=== PATIENT | female | born 1945 | race Caucasian/White ===

== ENCOUNTER 2024-07-29 19:20 | Inpatient (IN) | payer MEDICARE, BC ==
[~2024-07-29] VITALS: Ht 167.6 cm; Wt 87.5 kg
[2024-07-29] MEDS: IV NS 0.9% 500 ML BAG IV ONE (19:30)
[2024-07-29] MEDS: ONDANSETRON HCL/PF 4 MG/2 ML VIAL IVP ONE (19:30)
[2024-07-29] MEDS: MORPHINE SULFATE INJ 2 MG/ML DISP.SYRIN IV ONE ×2 (19:30→20:34)
[2024-07-29] MEDS ORDERED: MORPHINE SULFATE INJ 4 MG/ML DISP.SYRIN ONE ×2 (19:39→20:31)
[2024-07-29] MEDS ORDERED: ONDANSETRON HCL/PF 4 MG/2 ML VIAL ONE (19:39)
[2024-07-29 19:44] LABS: BASOPHILS # (AUTO) 0.1 K/uL (0.0-0.2); BASOPHILS % (AUTO) 1.3 % (0.0-2.0); EOSINOPHILS # (AUTO) 0.2 K/uL (0.0-0.7); EOSINOPHILS % (AUTO) 2.6 % (0.0-6.0); HEMATOCRIT 40 % (33-45); HEMOGLOBIN 13.4 g/dL (11.5-14.8); LYMPHOCYTES # (AUTO) 2.2 K/uL (0.8-4.8); LYMPHOCYTES % (AUTO) 33.6 % (20.0-44.0); MEAN CORPUSCULAR HEMOGLOBIN 28 PG (26.0-33.0); MEAN CORPUSCULAR HGB CONC 34 g/dl (31.0-36.0); MEAN CORPUSCULAR VOLUME 85 fL (82-100); MONOCYTES # (AUTO) 0.8 K/uL (0.1-1.30); MONOCYTES % (AUTO) 12.7 % (2.0-12.0); NEUTROPHILS # (AUTO) 3.2 K/uL (1.8-8.9); NEUTROPHILS % (AUTO) 49.8 % (43.0-81.0); PLATELET COUNT (AUTO) 274 K/uL (150-450); RED BLOOD CELL COUNT(AUTO) 4.74 MIL/uL (4.0-5.2); RED CELL DISTRIBUTION WIDTH 14.4 % (11.5-15.0); WHITE BLOOD COUNT (AUTO) 6.5 K/uL (4.3-11.0)
[2024-07-29 19:53] LABS: CALCIUM, SERUM 9.4 mg/dL (8.5-10.1); CREATININE 0.8 mg/dL (0.6-1.3); POTASSIUM 3.3 mmol/L (3.5-5.1)
[2024-07-29] MEDS ORDERED: Z GUARD REMEDY 4 OZ OINT TP PRN (23:00)
[2024-07-29] MEDS ORDERED: ONDANSETRON HCL/PF 4 MG/2 ML VIAL IVP PRN (23:00)
[2024-07-29] MEDS ORDERED: ZOLPIDEM TARTRATE 5 MG TABLET PO PRN (23:00)
[2024-07-29] MEDS: POTASSIUM CHLORIDE 20 MEQ TAB.PRT.SR PO ONE (23:45)
[2024-07-29] MEDS: IV D5/0.45 NACL 1,000 ML IV PRN (23:48)
[2024-07-30] MEDS: HYDROCODONE/APAP 5/325MG TABLET PO PRN (00:23)
[2024-07-30 07:28] LABS: BASOPHILS # (AUTO) 0.1 K/uL (0.0-0.2); EOSINOPHILS # (AUTO) 0.1 K/uL (0.0-0.7); EOSINOPHILS % (AUTO) 1.3 % (0.0-6.0); HEMATOCRIT 37 % (33-45); HEMOGLOBIN 12.2 g/dL (11.5-14.8); LYMPHOCYTES # (AUTO) 0.9 K/uL (0.8-4.8); LYMPHOCYTES % (AUTO) 13.7 % (20.0-44.0); MEAN CORPUSCULAR HEMOGLOBIN 29 PG (26.0-33.0); MEAN CORPUSCULAR HGB CONC 33 g/dl (31.0-36.0); MEAN CORPUSCULAR VOLUME 86 fL (82-100); MONOCYTES # (AUTO) 0.9 K/uL (0.1-1.30); MONOCYTES % (AUTO) 13.5 % (2.0-12.0); NEUTROPHILS # (AUTO) 4.6 K/uL (1.8-8.9); NEUTROPHILS % (AUTO) 70.5 % (43.0-81.0); PLATELET COUNT (AUTO) 239 K/uL (150-450); RED BLOOD CELL COUNT(AUTO) 4.27 MIL/uL (4.0-5.2); RED CELL DISTRIBUTION WIDTH 14.6 % (11.5-15.0); WHITE BLOOD COUNT (AUTO) 6.4 K/uL (4.3-11.0)
[2024-07-30 07:58] LABS: CALCIUM, SERUM 8.7 mg/dL (8.5-10.1); CREATININE 0.7 mg/dL (0.6-1.3); MAGNESIUM 2.3 mg/dL (1.8-2.4); PHOSPHORUS 4.1 mg/dL (2.5-4.9); POTASSIUM 3.6 mmol/L (3.5-5.1)
[2024-07-30] MEDS: MORPHINE SULFATE INJ 2 MG/ML DISP.SYRIN IV PRN (07:59)
[2024-07-30 08:00] VITALS: BP 104/63; TEMP 98.2; O2SAT 93
[2024-07-30 08:01] LABS: INR 1.13 (0.91-1.10); PARTIAL THROMBOPLASTIN TIME 28.1 SEC (24.3-34.3); PROTHROMBIN TIME 11.9 SECS (9.2-11.1)
[2024-07-30] MEDS: PANTOPRAZOLE 40 MG VIAL IV SCH (08:53)
[2024-07-30] MEDS ORDERED: VALS1TAB7 PO (09:02)
[2024-07-30] MEDS ORDERED: FLUO20CA42 PO (09:02)
[2024-07-30] MEDS ORDERED: AMLO-212 PO (09:02)
[2024-07-30] MEDS ORDERED: ROSU5TAB13 PO (09:02)
[2024-07-30] MEDS ORDERED: MIRABEGRON PO (09:02)
[2024-07-30] MEDS ORDERED: FLUT16SP BNOSTRILS (09:02)
[2024-07-30] MEDS: MAG HYDROX/AL HYDROX/SIMETH 30 ML UDC PO PRN (10:57)
[2024-07-30] MEDS ORDERED: FLUTICASONE PROPIONATE 16 GM BOTTLE NS PRN (13:30)
[2024-07-30 16:00] VITALS: BP 115/65; TEMP 97.6; O2SAT 94
[2024-07-30 20:00] VITALS: BP 130/78; TEMP 98.6; O2SAT 95
[2024-07-31] VITALS (9 sets, daily range): BP systolic 120–126; BP diastolic 57–87; TEMP 97.8–98.4; O2SAT 93–96
[2024-07-31] MEDS ORDERED: ANESTHESIA TRAY IN PYXIS 1 EA TRAY MC ONE (08:15)
[2024-07-31] MEDS ORDERED: BUPIVACAINE 0.5 % PF 150 MG/30 ML VIAL ONE ×2 (08:15→09:03)
[2024-07-31 08:17] LABS: BASOPHILS % (AUTO) 0.6 % (0.0-2.0); EOSINOPHILS % (AUTO) 0.8 % (0.0-6.0); HEMATOCRIT 34 % (33-45); HEMOGLOBIN 11.3 g/dL (11.5-14.8); LYMPHOCYTES # (AUTO) 0.8 K/uL (0.8-4.8); LYMPHOCYTES % (AUTO) 13.1 % (20.0-44.0); MEAN CORPUSCULAR HEMOGLOBIN 28 PG (26.0-33.0); MEAN CORPUSCULAR HGB CONC 33 g/dl (31.0-36.0); MEAN CORPUSCULAR VOLUME 85 fL (82-100); MONOCYTES # (AUTO) 0.9 K/uL (0.1-1.30); MONOCYTES % (AUTO) 14.6 % (2.0-12.0); NEUTROPHILS # (AUTO) 4.4 K/uL (1.8-8.9); NEUTROPHILS % (AUTO) 70.9 % (43.0-81.0); PLATELET COUNT (AUTO) 204 K/uL (150-450); RED BLOOD CELL COUNT(AUTO) 3.99 MIL/uL (4.0-5.2); RED CELL DISTRIBUTION WIDTH 14.5 % (11.5-15.0); WHITE BLOOD COUNT (AUTO) 6.3 K/uL (4.3-11.0)
[2024-07-31 08:32] LABS: INR 1.16 (0.91-1.10); PROTHROMBIN TIME 12.2 SECS (9.2-11.1)
[2024-07-31 08:33] LABS: CALCIUM, SERUM 8.5 mg/dL (8.5-10.1); CREATININE 0.5 mg/dL (0.6-1.3); POTASSIUM 4.1 mmol/L (3.5-5.1)
[2024-07-31] MEDS ORDERED: FENTANYL PF 100MCG/2ML AMPUL ONE (08:50)
[2024-07-31] MEDS ORDERED: MIDAZOLAM HCL 2 MG/2ML VIAL ONE (08:51)
[2024-07-31] MEDS: ATORVASTATIN 10 MG TABLET PO SCH (09:00)
[2024-07-31] MEDS: AMLODIPINE BESYLATE 5 MG TABLET PO SCH (09:00)
[2024-07-31] MEDS: FLUOXETINE HCL 20 MG CAPSULE PO SCH (09:00)
[2024-07-31] MEDS ORDERED: FENTANYL PF 100MCG/2ML AMPUL IV PRN (09:00)
[2024-07-31] MEDS: HYDROCHLOROTHIAZIDE 25 MG TABLET PO SCH (09:00)
[2024-07-31] MEDS: LOSARTAN POTASSIUM 50 MG TABLET PO SCH (09:00)
[2024-07-31] MEDS ORDERED: VANCOMYCIN 1 GM VIAL ONE (09:33)
[2024-07-31] MEDS ORDERED: HYDROCODONE/APAP 10/325MG TABLET PO PRN (12:00)
[2024-07-31] MEDS: IV D5/0.45 NACL W/20 MEQ KCL 1L IV SCH (12:33)
[2024-07-31] MEDS: CEFAZOLIN 2 GM in IV D5W 100 ML IV SCH (17:00)
[2024-07-31] MEDS: MORPHINE SULFATE INJ 4 MG/ML DISP.SYRIN IV PRN (18:34)
[2024-08-01 07:26] LABS: BASOPHILS % (AUTO) 0.3 % (0.0-2.0); HEMATOCRIT 30 % (33-45); HEMOGLOBIN 10.1 g/dL (11.5-14.8); LYMPHOCYTES # (AUTO) 0.8 K/uL (0.8-4.8); LYMPHOCYTES % (AUTO) 10.2 % (20.0-44.0); MEAN CORPUSCULAR HEMOGLOBIN 29 PG (26.0-33.0); MEAN CORPUSCULAR HGB CONC 34 g/dl (31.0-36.0); MEAN CORPUSCULAR VOLUME 85 fL (82-100); MONOCYTES # (AUTO) 1.2 K/uL (0.1-1.30); MONOCYTES % (AUTO) 14.7 % (2.0-12.0); NEUTROPHILS # (AUTO) 5.9 K/uL (1.8-8.9); NEUTROPHILS % (AUTO) 74.8 % (43.0-81.0); PLATELET COUNT (AUTO) 160 K/uL (150-450); RED BLOOD CELL COUNT(AUTO) 3.52 MIL/uL (4.0-5.2); WHITE BLOOD COUNT (AUTO) 7.9 K/uL (4.3-11.0)
[2024-08-01 08:00] VITALS: BP 128/75; TEMP 98.4; O2SAT 92; O2SAT 95
[2024-08-01 08:11] LABS: CALCIUM, SERUM 8.2 mg/dL (8.5-10.1); CREATININE 0.4 mg/dL (0.6-1.3)
[2024-08-01] MEDS: PANTOPRAZOLE 40 MG TABLET.DR PO SCH (10:02)
[2024-08-01 16:00] VITALS: BP 127/66; TEMP 98.4; O2SAT 96
[2024-08-01 16:59] VITALS: BP 127/66; TEMP 98.4; O2SAT 96
[2024-08-01 20:00] VITALS: BP_SYST 119; BP_SYST 139; BP_DIAS 57; BP_DIAS 66; TEMP 98.4; O2SAT 100; O2SAT 94
[2024-08-01] MEDS: ACETAMINOPHEN 325 MG TABLET PO PRN (22:38)
[2024-08-02 07:26] LABS: CALCIUM, SERUM 8.7 mg/dL (8.5-10.1); CREATININE 0.4 mg/dL (0.6-1.3); POTASSIUM 3.7 mmol/L (3.5-5.1)
[2024-08-02 07:31] LABS: BASOPHILS % (AUTO) 0.8 % (0.0-2.0); EOSINOPHILS # (AUTO) 0.1 K/uL (0.0-0.7); EOSINOPHILS % (AUTO) 1.1 % (0.0-6.0); HEMATOCRIT 34 % (33-45); LYMPHOCYTES # (AUTO) 0.9 K/uL (0.8-4.8); LYMPHOCYTES % (AUTO) 16.5 % (20.0-44.0); MEAN CORPUSCULAR HEMOGLOBIN 28 PG (26.0-33.0); MEAN CORPUSCULAR HGB CONC 33 g/dl (31.0-36.0); MEAN CORPUSCULAR VOLUME 85 fL (82-100); MONOCYTES # (AUTO) 0.9 K/uL (0.1-1.30); MONOCYTES % (AUTO) 16.1 % (2.0-12.0); NEUTROPHILS # (AUTO) 3.7 K/uL (1.8-8.9); NEUTROPHILS % (AUTO) 65.5 % (43.0-81.0); PLATELET COUNT (AUTO) 198 K/uL (150-450); RED BLOOD CELL COUNT(AUTO) 3.94 MIL/uL (4.0-5.2); RED CELL DISTRIBUTION WIDTH 14.4 % (11.5-15.0); WHITE BLOOD COUNT (AUTO) 5.6 K/uL (4.3-11.0)
[2024-08-02 08:42] VITALS: BP 125/74; TEMP 97.9; O2SAT 97
[2024-08-02] MEDS ORDERED: ACET325T53 PO (10:54)
[2024-08-02] MEDS: LOSARTAN POTASSIUM 50 MG TABLET PO SCH (13:55)
[2024-08-02] MEDS: LOSARTAN/HCTZ 50-12.5MG/ 1 EA TABLET PO SCH (14:07)
[2024-08-02] MEDS: MAGNESIUM HYDROXIDE 30 ML UDC PO PRN (15:27)
[2024-08-02 15:59] VITALS: BP 119/77; TEMP 97.5; O2SAT 95
[2024-08-02] MEDS: MYRBETRIQ 25 MG PO SCH (17:02)
[2024-08-02] MEDS: ATORVASTATIN 10 MG TABLET PO SCH (21:31)
[2024-08-03 08:00] VITALS: BP 121/82; TEMP 98.1; O2SAT 97
[2024-08-03 16:11] VITALS: BP 107/62; TEMP 98.1; O2SAT 96
== END 2024-08-03 16:42 | disposition home health service (06) | DRG 493 ==
LOC: ER 19:26 → MED 20:38
PROVIDERS: ADMIT Student in an Organized Health Care Education/Training Program; ATTEND Nurse Practitioner Family
PROC: 0QSJ04Z Reposition Right Fibula with Internal Fixation Device, Open Approach (ICD-10-PCS; principal; 2024-08-03)
PROC: 0QSG04Z Reposition Right Tibia with Internal Fixation Device, Open Approach (ICD-10-PCS; 2024-08-03)
DX: S82.841A Displaced bimalleolar fracture of right lower leg, initial encounter for closed fracture (principal); E87.1 Hypo-osmolality and hyponatremia; W01.0XXA Fall on same level from slipping, tripping and stumbling without subsequent striking against object, initial encounter; E87.6 Hypokalemia; I10 Essential (primary) hypertension; E66.9 Obesity, unspecified; Y92.009 Unspecified place in unspecified non-institutional (private) residence as the place of occurrence of the external cause; E78.5 Hyperlipidemia, unspecified; Y99.9 Unspecified external cause status; F41.9 Anxiety disorder, unspecified; S93.01XA Subluxation of right ankle joint, initial encounter; Z68.31 Body mass index [BMI] 31.0-31.9, adult; H91.90 Unspecified hearing loss, unspecified ear
CPT/HCPCS: 36415; 71045-TC; 73590-TC; 73610-TC; 80048-TC; 83735-TC; 84100-TC; 85025-TC; 85610-TC; 85730-TC; 86850-TC; 93307-TC; 97110-TC; 97116-TC; 97530-TC; A4223; G0378; J0690; J1100; J2250; J2270; J2405; J2470; J2704; J3010; J3370; J3480; J3490; J7030; J7040; J7050; J7060